=== PATIENT | female | born 1960 | race African-American/Black ===

== ENCOUNTER 2019-05-06 13:52 | Emergency (ER) | payer OTHER ==
[~2019-05-06] VITALS: Ht 167.6 cm; Wt 83.9 kg
[~2019-05-06 13:52] MED LIST: REMERON15 MG PO; TRAZODONE HCL100 MG PO; VENLAFAXIN75 MG/1 T2 PO; VISTARIL 25 MG25 M1 PO
[2019-05-06 14:05] VITALS: BP 136/67
[2019-05-06 14:11] LABS: BASOPHILS 1.1 % (0.0-2.0); EOSINOPHILS 1.1 % (0.0-3.0); HEMATOCRIT 38.8 % (37.0-47.0); HEMOGLOBIN 12.8 gm/dL (12.0-15.0); LYMPHOCYTES 55.6 % (24.0-44.0); MCH 32.1 pg (26.0-34.0); MCHC 32.9 g/dL (28.0-37.0); MCV 97.4 fL (80.0-100.0); MONOCYTES 6.2 % (1.0-8.0); PLATELET COUNT 213 thou/uL (150-400); RBC 3.98 mil/uL (4.20-5.00); RDW 13.6 % (10.5-14.5); WBC 5.7 thou/uL (4.0-11.0)
[2019-05-06 14:18] LABS: ANION GAP 13 mmol/L (7-16); BUN 7 mg/dL (7-18); CALCIUM 9.5 mg/dL (8.5-10.1); CHLORIDE 105 mmol/L (98-107); CO2 24 mmol/L (21-32); CREATININE 0.9 mg/dL (0.6-1.0); GLUCOSE 117 mg/dL (74-106); POTASSIUM 3.3 mmol/L (3.5-5.1); SODIUM 142 mmol/L (136-145)
[2019-05-06 14:29] LABS: ALBUMIN 3.5 g/dL (3.4-5.0); MAGNESIUM 1.9 mg/dL (1.8-2.4); SGOT 64 U/L (15-37); SGPT 76 U/L (30-65); TOTAL BILIRUBIN 0.2 mg/dL (<0.1-1.0); TROPONIN-I <0.06 ng/mL (<0.06)
[2019-05-06] MEDS ORDERED: VALIUM2 MG PO (15:30)
[2019-05-06] MEDS ORDERED: ANTIVERT25 MG PO (15:30)
--- NOTE | 2019-05-08 14:59 | EKG ---
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: [facility] : 1960 Requested By: Rigoberto Pool Order Number: [id number] MD: Won Nath Measurements Intervals [place] Rate: 55 P: 25 TN: 216 QRS: 39 QRSD: 92 T: 61 QT: 492 QTc: 471 Interpretive Statements Sinus rhythm Prolonged TN interval Compared to ECG 10/05/2014 01:38:57 First degree AV block now present T-wave abnormality no longer present Electronically Signed On 05-08-2019 14:59:12 [employer]PER[employer] by Won Nath [email or web address] <ELECTRONICALLY SIGNED> By: Won Nath MD 05/08/19 1459 51 51 Won Nath MD /ALISA
== END 2019-05-06 15:40 | disposition home or self-care (01) ==
LOC: ER 13:52
PROVIDERS: Emergency Medicine
DX: R42 Dizziness and giddiness (principal); E11.9 Type 2 diabetes mellitus without complications; F17.210 Nicotine dependence, cigarettes, uncomplicated